=== PATIENT | female | born 1965 | race African-American/Black ===

== ENCOUNTER 2019-06-30 12:12 | Emergency (ER) | payer MEDICAID, OTHER ==
[~2019-06-30] VITALS: Ht 157.5 cm; Wt 54.4 kg
[2019-06-30 12:29] VITALS: BP 153/96
[2019-06-30] MEDS ORDERED: KETOROLAC TROMETH 60MG/2ML VIAL IM ONE (14:15)
== END 2019-06-30 14:48 | disposition home or self-care (01) ==
LOC: EDBD 12:12 → ER 12:17
DX: M54.42 Lumbago with sciatica, left side (principal); J45.909 Unspecified asthma, uncomplicated; I10 Essential (primary) hypertension; F17.210 Nicotine dependence, cigarettes, uncomplicated
CPT/HCPCS: 96372; 99283; J1885